=== PATIENT | female | born 1995 ===

== ENCOUNTER 2022-08-07 16:51 | Outpatient (REF) | payer BC, SELFPAY ==
[2022-08-07 18:06] LABS: Influenza A PCR NEGATIVE (Negative); Influenza B PCR NEGATIVE (Negative); Resp Syncy Virus RNA Qual PCR NEGATIVE (Negative); SARS COV2 PCR INHOUSE NEGATIVE (Negative)
== END 2022-08-07 16:52 | disposition home or self-care (01) ==
LOC: HO.LNP 16:51
PROVIDERS: Referring Provider Physician Assistant; Visit Provider Physician Assistant
DX: Z20.822 Contact with and (suspected) exposure to COVID-19 (principal); B34.9 Viral infection, unspecified
CPT/HCPCS: 0241U

== ENCOUNTER 2023-06-29 09:33 | Outpatient (AMB) | payer BC, SELFPAY ==
--- OUTSIDE RECORDS SUMMARY | 2023-06-29 09:34 | XMS_ITS | Continuity of Care Document ---
Author Name Unknown Organization [facility] Address [address] [place] [address]- Care Team Providers Care Arson And Bomb Investigator Name Role Phone Nixon ZAMAN, Angel Primary Care Physician [phone] [facility] Date[facility]s): 02/[facility]/22 - 03/22/[address] [address] Attending Physician: Angel Alicea MD Admitting Physician: Angel Alicea MD Referring Physician: Angel Alicea MD Allergies, Adverse Reactions, Alerts No Known Allergies Problem List Condition Effective Dates Status Health Status Inform ant COVID-19(Confirmed) 1 01/04/22 Active 1Problem added by Discern Expert
--- OUTSIDE RECORDS SUMMARY | 2023-06-29 09:34 | XMS_ITS | Continuity of Care Document ---
Author Name Unknown Organization [facility] Address [address] [place] [address]- Care Team Providers Care Metal Furniture Repairer Name Role Phone Nixon ZAMAN, Angel Primary Care Physician Encounter [facility] Date(s): 02/04/22 - 03/06/22 [facility] [address] [place], [place] [address] Attending Physician: Keny Schulz Admitting Physician: AdmKeny haque Referring Physician: Admtr, Ar8 Allergies, Adverse Reactions, Alerts No Known Allergies Problem List Condition Effective Dates Status Health Status Inform ant COVID-19(Confirmed) 1 01/04/22 Active 1Problem added by Discern Expert
--- OUTSIDE RECORDS SUMMARY | 2023-06-29 09:34 | XMS_ITS | Continuity of Care Document ---
Author Name Unknown Organization [facility] ter Address [address] [place] [address]- Care Team Providers Care Framing Carpenter Name Role Phone Not on Staff, PCP Primary Care Physician Unavail able Encounter [facility] [place] Date(s): 01/04/22 - 01/04/[address] [address]- Discharge Disposition: A-D/C Home Attending Physician: Mike Landry MD Admitting Physician: Mike Landry MD Referring Physician: Not on Staff, Referring MD Allergies, Adverse Reactions, Alerts No Known Allergies Problem List Condition Effective Dates Status Health Status Inform ant COVID-19(Confirmed) 1 01/04/22 Active 1Problem added by Discern Expert Vital Signs Most recent to oldest [Reference Range]: 1 2 Oxygen Saturation [94-100 %] 98 % (01/04/22 4:50 PM) 98 % (01/04/22 1:31 PM) Pulse Rate [55-90 bpm] 95 bpm *H* (01/04/22 4:50 PM) 102 bpm *H* (01/04/22 1:31 PM) Blood Pressure [90-138/55-84 mm Hg] 111/ 73mm Hg (01/04/22 4:50 PM) 132/79mm Hg (01/04/22 1:31 PM) Respiratory Rate [16-30 br/min] 18 br/mi n (01/04/22 4:50 PM) 16 br/min (01/04/22 1:31 PM) Temperature [96.8-100.4 DegF] 98.8 DegF (01/04/22 1:31 PM) Mode of Delivery (Oxygen) Room air (01/04/22 4:50 PM) Room air (01/04/22 1:31 PM) Temperature Route Oral (01/04/22 1:31 PM)
--- OUTSIDE RECORDS SUMMARY | 2023-06-29 09:35 | XMS_ITS | Continuity of Care Document ---
Author Name Unknown Organization [facility] ter Address [address] [place] [address]- Care Team Providers Care Windows Systems Administrator Name Role Phone Angel Alicea MD Primary Care Physician Encounter [facility] Date(s): 02/07/23 - 02/07/[address] [address]- Discharge Disposition: A-D/C Home Attending Physician: Perlita Wilde MD Admitting Physician: Perlita Wilde MD Referring Physician: Not on Staff, Referring MD Allergies, Adverse Reactions, Alerts No Known Allergies Medications acetaminophen 325 mg oral tablet 650 mg, Tablet, By Mouth, Once, STAT, 02/07/23 19:34:00 EDT, Stop date 02/07/23 19:34:00 EDT Start Date: 02/07/23 Stop Date: 02/07/23 Status: Completed Motrin Tablet 600 mg, Tablet, By Mouth, Once, STAT, 02/07/23 19:35:00 EDT, Stop date 02/07/23 19:35:00 EDT Start Date: 02/07/23 Stop Date: 02/07/23 Status: Completed Problem List Condition Confirmation Course Effective Dates Status Health atus Informant COVID-19 1 Confirmed 01/04/22 Active 1Problem added by Discern Expert Results Radiology Reports * Exam Date Time Procedure Performing Provider Status 02/07/23 6:[address] Pelvis W/ Contrast Jessica Parada (Verified) Notes: (CT Pelvis W/ Contrast) Reason For Exam: Pain RESULT: CT Pelvis W/ Contrast CT Pelvis W/ Contrast Hx of Present Illness: Cyst on L buttock with pain; Reason: Pain; Clinical Question(s): Abscess; Order Comment: TECHNIQUE: Helical CT with IV contrast formatted in 3 planes. 100 cc of Omnipaque 300 was administered intravenously. Enteric contrast was not administered. Automatic tube modulation and/or iterativedose reconstruction were used to optimize exposure parameters. CTDIvol Body: 12.22 mGy, DLP Body: 485 mGy*cm. COMPARISON: None FINDINGS: GI tract: Normal. Normal appendix. Reproductive organs: Normal uterus and ovaries. No pelvic mass. Bladder: Mildly distended, normal. Lymph nodes: No enlarged nodes. Peritoneum and mesentery: No ascites or pneumoperitoneum. Vascular: Normal. Bones: No focal abnormalities. No acute fracture. Pelvic wall/soft tissues: Along the superior aspect of the gluteal cleft there is a superficial oval collection measuring 4.4 x 3.2 x 2.0 cm with ill-defined enhancing rim and hypoattenuating center.There is stranding of the surrounding subcutaneous fat. No gas locules within the collection. IMPRESSION: Superficial collection with surrounding stranding measuring up to 4.4 cm with the appearance of an abscess. WSN: [id number] Ordering Physician: Bryn Rendon Dictated By: Yolette Hickey MD Dictated Date/Time: 02/07/23 7:30 pm Reviewed By: Yolette Hickey MD Signed By: Yolette Hickey MD Signed Date/Time: 02/07/23 7:30 pm Transcribed By: ISABELLA Transcribed Date/Time: 02/07/23 7:23 pm Vital Signs Most recent to oldest [Reference Range]: 1 2 Height 178 cm (02/07/23 3:25 PM) Oxygen Saturation [94-100 %] 99 % (02/07/23 9:20 PM) 99 % (02/07/23 3:25 PM) Pulse Rate [55-90 bpm] 108 bpm *H* (02/07/23 9:20 PM) 112 bpm *H* (02/07/23 3:25 PM) Blood Pressure [90-138/55-84 mm Hg] 114/ 74mm Hg (02/07/23 9:20 PM) 112/88mm Hg (02/07/23 3:25 PM) Respiratory Rate [16-30 br/min] 20 br/mi n (02/07/23 8:56 PM) 20 br/min (02/07/23 8:56 PM) Temperature [96.8-100.4 DegF] 98.8 DegF (02/07/23 9:20 PM) 99.0 DegF (02/07/23 3:25 PM) Blood pressure sites Arm, right (02/07/23 9:20 PM) Arm, left (02/07/23 3:25 PM) Temperature Route Oral (02/07/23 9:20 PM) Oral (02/07/23 3:25 PM) Dry Weight 91 kg (02/07/23 3:25 PM) Dry Weight Obtained Via Standing scale (02/07/23 3:25 PM) Note * Alejo HERRERA, Albino Mtz: PERFORM Event Display: Patient Education Leaflets Authored Date: [id number] Abscess (Incision & Drainage) ?? [id number] Abscess (Incision & Drainage) An abscess is sometimes called a boil. It happens when bacteria get trapped under the skin and start to grow. Pus forms inside the abscess as the body responds to the bacteria. An abscess can happen with an insect bite, ingrown hair, blocked oil gland, pimple, cyst, or puncture wound. Your healthcare provider has drained the pus from your abscess. If the abscess pocket was large, your provider may have put in gauze packing. Your provider will need to remove or replace it on your next visit. Antibiotics may have been prescribed if the infection is spreading around the wound. But you may not need them to treat a simple abscess. The wound??will take about 1 to 2 weeks to heal, depending on the size of the abscess. Healthy tissue will grow from the bottom and sides of the opening until it seals over. Home care These tips can help your wound heal: ??? The wound may drain for the first 2 days. Cover the wound with a clean dry dressing. Change the??dressing if it becomes soaked with blood or pus. ??? If a gauze packing was placed inside the abscess pocket, you may be told to remove it yourself. You may do this in the shower. Once the packing is removed, you should wash the area in the shower, or clean thearea as directed by your healthcare provider. Continue to do this until the skin opening has closed. Carefully throw away the packing to prevent spreading any infection. Make sure you wash your handsafter changing the packing or cleaning the wound. ??? If you were prescribed antibiotics, take themas directed until they are all gone. ??? You may use acetaminophen or ibuprofen to control pain, unless another pain medicine was prescribed.??If you have liver disease or ever had a stomach ulcer, talk with your healthcare provider before using these medicines. ?? Follow-up care Follow up with your healthcare provider, or as advised. If a gauze packing was put in your wound, it should be removed in 1 to 2 days, or as directed. Check your wound every day for any signs that the infection is getting worse. The signs are listed below. ?? When to get medical advice Call your healthcare provider right away if any of these occur: ??? Increasing redness or swelling ??? Red streaks in the skin leading away from the wound ??? Increasing local pain or swelling ??? Continued pus draining from the wound 2 days after treatment ??? Fever of 100.4??F (38??C) or higher, or as directed by your provider ??? Boil returns after treatment ?? Last Reviewed Date: 2021 ?? [id number] [employer]. All rights reserved. This information is not intended as a substitute for professional medical care. Always follow your healthcare professional's instructions. ?? Patient Care team information Care Team Personnel Name: Angel Alicea MD Position: [facility] Physician - Primary Care Member Role: PCP Address: Address: [address] [place] [address], 1[address] [place] [address]- Name: Albino Lowery Position: [facility] Associate Professional Member Role: ED Physician Belt Weaver Address: Address: [address] [place] [address] Emergency Medicine [place], [place] [facility] Name: Perlita Wilde MD Position: [facility] ED Medicine MD Member Role: Admitting Physician Address: Address: [address] [place] [address] - Name: Adina Ware Position: [facility] ED [facility] Member Role: Broadcast Producer Care Team Related Persons Name: VICKI GARRET Address: home [address] [place] [address] Name: DESTINEY RADER Address: home [address] [place] [address] Name: VINCENT ADKINS Address: home [address] [place] [address]
--- OUTSIDE RECORDS SUMMARY | 2023-06-29 09:35 | XMS_ITS | Continuity of Care Document ---
Author Name Unknown Organization [facility] Address [address] [place] [address]- Care Team Providers Care Marine Radio Installer And Servicer Name Role Phone Angel Alicea MD Primary Care Physician [facility] Date(s): 12/16/22 - 12/16/[address] [address]- Discharge Disposition: A-D/C Home Attending Physician: Benton De La O MD Admitting Physician: Benton De La O MD Referring Physician: Not on Staff, Referring MD Allergies, Adverse Reactions, Alerts No Known Allergies Problem List Condition Confirmation Course Effective Dates Status Health St atus Informant COVID-19 1 Confirmed 01/04/22 Active 1Problem added by Discern Expert Results Radiology Reports * Exam Date Time Procedure Performing Provider Status 12/16/22 1:28 PM Chest 2 Views Frontal and Lat Vitaliy , Katie; Auth (Verified) Notes: (Chest 2 Views Frontal and Lat) Reason For Exam: Chest Pain;Other: RESULT: Chest 2 Views Frontal and Lat Chest 2 Views Frontal and Lat Hx of Present Illness: pt with new dx of POTS, sts she is having upper bilat chest pain, non radiating, improves when she breaths, however complains of some increased sob all the time. denies heartburn or cardiac issues at this time; Reason: Other:; Chest Pain; Clinical Question(s): Other: COMPARISON: None. FINDINGS: No acute cardiopulmonary process IMPRESSION: No acute abnormality. WSN: [id number] Ordering Physician: Santhosh Boo Dictated By: Ever Panda MD Dictated Date/Time: 12/16/22 1:31 pm Reviewed By: Ever Panda MD Signed By: Ever Panda MD Signed Date/Time: 12/16/22 1:31 pm Transcribed By: ISABELLA Transcribed Date/Time: 12/16/22 1:30 pm Vital Signs Most recent to oldest [Reference Range]: 1 2 3 Oxygen Saturation [94-100 %] 100 % (12/16/22 4:12 PM) 100 % (12/16/22 1:02 PM) 99 % (12/16/22 12:53 PM) Pulse Rate [55-90 bpm] 81 bpm (12/16/22 4:12 PM) 72 bpm (12/16/22 1:02 PM) 99 bpm *H* (12/16/22 12:53 PM) Blood Pressure [90-138/55-84 mm Hg] 115/70mm Hg (12/16/22 4:12 PM) 122/77mm Hg (12/16/22 1:02 PM) Respiratory Rate [16-30 br/min] 18 br/min (12/16/22 4:12 PM) 18 br/min (12/16/22 1:02 PM) Temperature [96.8-100.4 DegF] 98.3 DegF (12/16/22 4:12 PM) 98.4 DegF (12/16/22 1:02 PM) Mode of Delivery (Oxygen) Room air (12/16/22 4:12 PM) Room air (12/16/22 1:02 PM) Room air (12/16/22 12:53 PM) Blood pressure sites Arm, right (12/16/22 4:12 PM) Arm, right (12/16/22 1:02 PM) Temperature Route Oral (12/16/22 4:12 PM) Oral (12/16/22 1:02 PM) EKG study * Event Display: ECG 12-Lead Authored Date: Please click on pdf link to open report * Event Display: ECG 12-Lead Authored Date: Ventricular Rate: 78 BPM Atrial Rate: 78 BPM P-R Interval: 154 ms QRS Duration: 98 ms Q-T Interval: 386 ms QTC Calculation(Bazett): 440 ms P [place]: 57 degrees R [place]: 55 degrees T [place]: 32 degrees Normal sinus rhythm with sinus arrhythmia Normal ECG No previous ECGs available Confirmed by AUREA BROCK MD ([id number]) on 12/16/2022 3:53:00 PM Rochelle: AUREA BROCK MD Note * Benton De La O MD R: PERFORM, SIGN, VERIFY Event Display: Patient Education Handout Authored Date: [id number] * RANDY Samson S: TRANSCRIBE Ever Panda MD: VERIFY Event Display: Result: Authored Date: [id number] Chest 2 Views Frontal and Lat Hx of Present Illness: pt with new dx of POTS, sts she is having upper bilat chest pain, non radiating, improves when she breaths, however complains of some increased sob all the time. denies heartburn or cardiac issues at this time; Reason: Other:; Chest Pain; Clinical Question(s): Other: COMPARISON: None. FINDINGS: No acute cardiopulmonary process IMPRESSION: No acute abnormality. WSN: [id number] Ordering Physician: Santhosh Boo Dictated By: Ever Panda MD Dictated Date/Time: 12/16/22 1:31 pm Reviewed By: Ever Panda MD Signed By: Ever Panda MD Signed Date/Time: 12/16/22 1:31 pm Transcribed By: ISABELLA Transcribed Date/Time: 12/16/22 1:30 pm Patient Care team information Care Team Personnel Name: Angel Alicea MD Position: [facility] Primary Care Physician Member Role: PCP Address: Address: [address] [place] [address], [address] Name: Benton De La O MD Position: [facility] ED Medicine MD Member Role: Admitting Physician Address: Address: [address] [place] [address] Name: Brittaney Villeda RN Position: [facility] ED RN W/OE and Tasks Member Role: Patient Care Provider Name: Ana Vital Position: [facility] ED TA [facility] Member Role: Network Support Administrator Care Team Related Persons Name: GARRET COHEN Address: [address] [place] [address] Name: DESTINEY RADER Address: home [address] [place] [address] [place] Name: VINCENT ADKINS Address: home [address] [place] [address]
--- OUTSIDE RECORDS SUMMARY | 2023-06-29 09:35 | XMS_ITS | Continuity of Care Document ---
Author Name Unknown Organization [facility] Address [address] [place] [address]- Care Team Providers Care Technical Planner Name Role Phone Nixon ZAMAN, Angel Primary Care Physician [facility] Date[facility]s): 02/04/22 - 02/11/22 [facility] [address] [place], [place] [address] Attending Physician: Angel Alicea MD Referring Physician: Not on Staff, Referring MD Allergies, Adverse Reactions, Alerts No Known Allergies Problem List Condition Effective Dates Status Health Status Inform ant COVID-19(Confirmed) 1 01/04/22 Active 1Problem added by Discern Expert Vital Signs Most recent to oldest [Reference Range]: 1 Oxygen Saturation [94-100 %] 100 % (02/04/22 1:08 PM) Pulse Rate [55-90 bpm] 112 bpm *H* (02/04/22 1:08 PM) Blood Pressure [90-138/55-84 mm Hg] 137/ 88mm Hg (02/04/22 1:08 PM) Respiratory Rate [16-30 br/min] 20 br/mi n (02/04/22 1:08 PM) Temperature [96.8-100.4 DegF] 97.6 DegF (02/04/22 1:08 PM) Mode of Delivery (Oxygen) Room air (02/04/22 1:08 PM) Blood pressure sites Arm, right (02/04/22 1:08 PM) Temperature Route Temporal (02/04/22 1:08 PM)
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
--- NOTE | 2023-06-29 10:11 | AM.OFFWIN_ITS ---
Intake Vital Signs 06/29/23 10:12 Height 5 ft 10 in Weight 256 lb 7 oz BMI 36.8 BP 124/76 Blood Pressure Location Rt brachial Position Sitting Pulse 98 Pulse Source Pulse Oximeter Temp 97.9 F Temp Source Temporal Artery Scan Pulse Oximetry (%) 98 Oxygen Delivery Method Room Air Intake Visit Reasons: EST/sore throat/[phone] Intake Note: pt is here for c/o sore throat, and daughter have strep Patient Tobacco Use Status: Never used Tobacco Allergies No Known Allergies Allergy (Verified 06/29/23 10:45) Medication List - Last Reconciled 06/29/23 by Artie Davis MD albuterol sulfate 90 mcg/actuation 2 puffs inhalation Q4H PRN cholecalciferol (vitamin D3) 50 mcg PO DAILY clonidine HCl 0.1 - 0.2 mg PO BEDTIME escitalopram oxalate 20 mg PO DAILY ibuprofen 800 mg PO TID levothyroxine 75 mcg PO DAILY Do you need a note to return to daycare/school/sports/work: Yes HPI EST/sore throat/[phone] HPI Details Patient presents for a sick visit. Reporting symptoms of sinus congestion, sore throat and difficulty swallowing. Low-grade fever. No family member is sick. No recent travel. Patient reports symptoms of malaise and fatigue. [facility] Social History Patient Tobacco Use Status: Never used Tobacco Physical Exam Vital Signs: Last Vital Signs Temp 97.9 F 06/29/23 10:12 Pulse 98 06/29/23 10:12 BP 124/76 06/29/23 10:12 Pulse Ox 98 06/29/23 10:12 Oxygen Delivery Method Room Air 06/29/23 10:12 BMI result Body Mass Index 36.8 Const General: cooperative and healthy appearing Nutritional Appearance: well nourished Orientation/consciousness: patient oriented x3 Limitations: no limitations HEENT Head: Yes normal to inspection Eyes General: appearance normal, both eyes and all related structures Neck Neck: Yes normal visual inspection Chest Chest palpation & inspection: normal palpation of entire chest wall Resp Effort & Inspection: normal respiratory effort Neuro General: patient oriented x3 Results AMB Rapid Strep AMB Rapid Strep Negative Last Edit by Saqib Wilkins CMA on 06/29/23 10 :30 Results Reviewed Results Reviewed: Laboratory Last Values Strep Scn Rapid Clinic Negative 06/29/23 10:30 Assessment & Plan Assessment & Plan (1) Upper respiratory tract infection: Code(s): J06.9 - Acute upper respiratory infection, unspecified Orders: Orders AMB Rapid Strep Screen Today Z13.9 - Encounter for screening, unspecified Patient Instructions: Antibiotics ordered. Increase fluid intake. Tylenol for aches and pains. If symptoms worsen, follow-up here for a recheck. Strep test was negative. Coding Level of Care Code Est Pt Level 3 (64726) Diagnoses Upper respiratory tract infection J06.9
[2023-06-29 10:12] VITALS: BP 124/76; PULSE 98; TEMP 36.6; O2SAT 98; BMI 36.8
== END 2023-06-29 11:00 | disposition home or self-care (01) ==
PROVIDERS: Visit Provider Internal Medicine
DX: J06.9 Acute upper respiratory infection, unspecified (principal); J02.9 Acute pharyngitis, unspecified
CPT/HCPCS: 87880; 99213

== ENCOUNTER 2023-06-30 15:56 | Outpatient (AMB) | payer BC, SELFPAY ==
--- NOTE | 2023-06-30 16:23 | MHC.OFFWIV ---
Intake Vital Signs 06/30/23 16:24 Height 5 ft 10 in Weight 261 lb BMI 37.4 BP 104/68 Blood Pressure Location Lt brachial Position Sitting Pulse 97 Pulse Source Pulse Oximeter Temp 97.8 F Temp Source Oral Pulse Oximetry (%) 98 Oxygen Delivery Method Room Air Intake Visit Reasons: EST/right ear blockage(lobby) Intake Note: Pt is here today c/o RT ear blocked Patient Tobacco Use Status: Never used Tobacco Allergies No Known Allergies Allergy (Verified 06/30/23 16:25) Do you need a note to return to daycare/school/sports/work: No HPI EST/right ear blockage(lobby) HPI Details 27-year-old female returns for a follow-up visit. She was seen yesterday for upper respiratory tract infection and put on azithromycin. Patient reports she has anxiety when she has to take medications she has not taken before. She prefers to take amoxicillin instead. [facility] Social History Patient Tobacco Use Status: Never used Tobacco Physical Exam Vital Signs: Last Vital Signs Temp 97.8 F 06/30/23 16:24 Pulse 97 06/30/23 16:24 BP 104/68 06/30/23 16:24 Pulse Ox 98 06/30/23 16:24 Oxygen Delivery Method Room Air 06/30/23 16:24 BMI result Body Mass Index 37.4 Const General: cooperative and healthy appearing Nutritional Appearance: well nourished Orientation/consciousness: patient oriented x3 Limitations: no limitations HEENT Head: Yes normal to inspection Eyes General: appearance normal, both eyes and all related structures Neck Neck: Yes normal visual inspection Chest Chest palpation & inspection: normal palpation of entire chest wall Resp Effort & Inspection: normal respiratory effort Neuro General: patient oriented x3 Assessment & Plan Assessment & Plan (1) Upper respiratory tract infection: Code(s): J06.9 - Acute upper respiratory infection, unspecified Plan Azithromycin changed amoxicillin. Increase fluid intake. Medications: New amoxicillin 500 mg PO Q8H 30 caps 0RF Discontinued azithromycin Discontinued Reason: Doctor's Order take 500 mg today (day 1), then 250 mg for 4 days (days 2-5) PO 6 tabs 0RF Coding Level of Care Code Est Pt Level 3 ([address]) Diagnoses Upper respiratory tract infection J06.9
[2023-06-30 16:24] VITALS: BP 104/68; PULSE 97; TEMP 36.6; O2SAT 98; BMI 37.4
== END 2023-06-30 16:50 | disposition home or self-care (01) ==
LOC: HO.HMGWI 15:56
DX: J06.9 Acute upper respiratory infection, unspecified (principal)
CPT/HCPCS: 99213

== ENCOUNTER 2023-09-13 13:14 | Outpatient (AMB) | payer SELFPAY ==
--- NOTE | 2023-09-13 13:42 | AM.OFFWIN_ITS ---
Intake Vital Signs 09/13/23 13:58 Height 5 ft 10 in Weight 258 lb 8 oz BMI 37.1 BP 118/70 Blood Pressure Location Lt brachial Position Sitting Pulse 124 H Pulse Source Pulse Oximeter Temp 98 F Temp Source Oral Pulse Oximetry (%) 96 Oxygen Delivery Method Room Air Intake Visit Reasons: EP congestion headache body aches [phone] Intake Note: Pt is here today for cough, congestion, and body aches since Wednesday. Patient Tobacco Use Status: Never used Tobacco Allergies No Known Allergies Allergy (Verified 09/13/23 13:42) Do you need a note to return to daycare/school/sports/work: Yes HPI HPI Comments History of Present Illness Details Patient presents to the walk in with complaints of congestion and feeling like ear is blocked for last 3 days Tested positive for covid at home. Is a preschool assistant teacher, out for 5 days per policy and would be due to return tomorrow but is still feeling unwell endorses fatigue, headaches, sinus congestion only taking motrin with mininal relief Tolerating po and trying to push fluids Denies chest pain, shortness of breath, sore throat, weakness, syncope, fevers PFSH Social History Patient Tobacco Use Status: Never used Tobacco Review of Systems Const All systems reviewed & are unremarkable except as noted in HPI and below Physical Exam Vital Signs: Last Vital Signs Temp 98 F 09/13/23 13:58 Pulse 124 H 09/13/23 13:58 BP 118/70 09/13/23 13:58 Pulse Ox 96 09/13/23 13:58 Oxygen Delivery Method Room Air 09/13/23 13:58 BMI result Body Mass Index 37.1 General: awake, alert, oriented. Answers questions appropriately. Fully engaged in examination. Skin: warm, dry, intact HEENT: TMs intact bilaterally. left TM notable for erythema and clouding. Posterior pharynx without erythema or exudate. Sclera without icterus or injection. Cardiac: External chest normal in appearance. Respiratory: LSCTAB. Abdomen: without gross distension. Neurological: Oriented to person, place, time and situation. Thought process intact. Psychiatric: Appropriate mood and affect. Good judgment and insight. Assessment & Plan Assessment & Plan (1) SARS-CoV-2 positive: Code(s): U07.1 - COVID-19 (2) Acute otitis media, left: Code(s): H66.92 - Otitis media, unspecified, left ear Plan presented to walkin today with complaints of sinus congestion and feeling like ears were blocked Augmentin DS BID for 5 days for acute left otitis media. Rest, drink plenty of fluids, avoid getting anything in the ear, tylenol as needed. Work note provided All questions and concerns were addressed during the visit, patient agrees with the plan. Follow up with pcp or in walkin for any new or worsening symptoms. Medications: New amoxicillin-pot clavulanate 875-125 mg 1 tab PO BID 10 tabs 0RF Coding Level of Care Code Est Pt Level 4 (31593) Diagnoses SARS-CoV-2 positive U07.1 Acute otitis media, left H66.92
[2023-09-13 13:58] VITALS: BP 118/70; PULSE 124; TEMP 36.6; O2SAT 96; BMI 37.1
== END 2023-09-13 15:08 | disposition home or self-care (01) ==
PROVIDERS: Visit Provider Registered Nurse Emergency
DX: U07.1 COVID-19 (principal); H66.92 Otitis media, unspecified, left ear
CPT/HCPCS: 99213